=== PATIENT | male | born 1985 | race Caucasian/White ===

== ENCOUNTER 2017-05-09 18:24 | Observation (INO) | payer BC, SELFPAY ==
[~2017-05-09 18:24] MED LIST: Iopamidol 370 76% 100 ML VIAL ONE
[2017-05-09] MEDS ORDERED: Verapamil 5 MG/2 ML VIAL ONE (18:40)
[2017-05-09] MEDS ORDERED: Heparin 10,000 UNITS/1 ML VIAL ONE (18:40)
[2017-05-09] MEDS ORDERED: Nitroglycerin 100MG/250ML BOT 250 ML ONE (18:40)
--- NOTE | 2017-05-09 18:54 | CON ---
DATE OF CONSULTATION: 05/09/2017 CHIEF COMPLAINT: Chest pain and ST segment elevation. HISTORY OF PRESENT ILLNESS: Mr. Garza is a pleasant 31-year-old gentleman who states he began havin g pain yesterday. The pain was sharp, worse with deep inspiration and worse with lying down. The pa in then resolved and then recurred this morning. It was felt to be severe. He presented to the [facility] room and was found to have ST segment elevation noted diffusely. He was transferred via air me dical for possible acute NM. PAST MEDICAL HISTORY: None. SOCIAL HISTORY: Tobacco abuse. He is currently with 3 children. PAST SURGICAL HISTORY: Titanium plate to his left shoulder. MEDICATIONS: None. REVIEW OF SYSTEMS: Ten-point review of systems is reviewed and as above, otherwise negative. PHYSICAL EXAMINATION: GENERAL: Patient is a pleasant male who is in no acute distress. The patient appears his stated age . VITAL SIGNS: Blood pressure 110/70, pulse 60, respirations 20. NEUROLOGIC: The patient is alert and oriented times 3 with no focal neurologic deficits. HEENT: Sclerae without icterus. Mouth has moist mucous membranes with normal pallor. NECK: No JVD. Carotid upstroke brisk. No bruits bilaterally. LUNGS: Clear to auscultation with unlabored respirations. BACK: No scoliosis or kyphosis. CARDIAC: Regular rate and rhythm with normal S1 and S2. No S3 or S4 noted. No significant rubs, murmurs, thrills, or gallops noted throughout the precordium. PMI is not displaced. There is no parasternal heave. ABDOMEN: Soft, nontender, nondistended. No peritoneal signs present. No hepatosplenomegaly. No abnormal striae. EXTREMITIES: 2+ femoral and 2+ dorsalis pedis pulses. No cyanosis, clubbing, or edema. SKIN: No gross abnormalities. PERTINENT LABS: Pending. IMPRESSION: 1. ST segment elevation. RECOMMENDATIONS: Mr. Garza's only risk factors include tobacco abuse. He does have ST segment elev ation noted in lead 1 and 2 in addition to V3 through V6. This is likely suggestive of pericarditis, but cannot completely exclude NM. I discussed risks and benefits of proceeding with coronary angiog dominic with Mr. Garza. The risks included but are not limited to the following: , stroke, NM, need for emergency surgery, loss of limb, bleeding, and infection, as well as a reaction to the dye c ausing kidney failure and needing long-term dialysis. I also discussed the risks of PCI to include a ll of the above including coronary dissection and perforation in addition to acute stent thrombosis a nd restenosis. All questions about the procedure were answered. Given the above, the patient agreed to proceed with coronary angiography and possible PCI. All questions were answered. Given the above, the patient agreed to proceed with above procedure. F bradley recommendations depending on the above.
[2017-05-09] MEDS ORDERED: traMADol HCl 50 MG TAB PO PRN (19:05)
[2017-05-09] MEDS ORDERED: Acetaminophen/Codeine 30-300mg Tablet PO PRN ×2 (19:05)
[2017-05-09] MEDS ORDERED: Nitroglycerin 0.4 MG TAB (25 Tab Bottle) SL PRN (19:05)
[2017-05-09] MEDS ORDERED: Sodium Chloride 0.9% 1,000 ML IV SCH (19:15)
[2017-05-09] MEDS ORDERED: Sodium Chloride 0.9% 200 ML IV SCH (19:15)
[2017-05-09] MEDS ORDERED: Ondansetron HCl/PF 4 MG/2 ML Vial IVP PRN (20:39)
[2017-05-09] MEDS ORDERED: Acetaminophen 325 MG TAB PO PRN (20:39)
[2017-05-09] MEDS: Ibuprofen 800 MG TAB PO SCH ×3 (20:55→21:15)
[2017-05-09] MEDS: Colchicine 0.6 MG TAB PO SCH (21:17)
--- NOTE | 2017-05-09 21:27 | HP ---
PRIMARY CARE PHYSICIAN: None. CHIEF COMPLAINT: Chest pain. HISTORY OF PRESENT ILLNESS: Mr. Garza is a pleasant 31-year-old gentleman who was seen at [facility] following transfer from Emergency Room at [place]. He reports that he had retrosternal chest discomfort over the last 3 days. He describes it as a sens ation of dull ache, 9/10 at its worst, radiating to his back, worse with lying down, improved with si tting up or leaning forward. He had it intermittently over the last couple of days. However, he had it for an extended duration today. He reports that it was accompanied by shortness of breath. He d enies any fevers or chills. He denies any recent flu-like symptoms. He went to the Emergency Room at [place]. There, an electrocardiogram was done, which showed ST se gment elevations in the inferior lateral leads. He was transferred by helicopter to this hospital fo r further management. Mr. Garza reports that his pain is currently 5/10. He already had a coronary angiography today. I spoke to the insulation board head saw operator, who told me that the coron annmarie are normal. He is diagnosed with pericarditis. REVIEW OF SYSTEMS: The following complete review of systems was negative, unless otherwise mentioned in the HPI or below: Constitutional: Weight loss or gain, ability to conduct usual activities. Skin: Rash, itching. Eyes: Double vision, pain. ENT/Mouth: Nose bleeding, neck stiffness, pain, tenderness. Cardiovascular: Palpitations, dyspnea on exertion, orthopnea. Respiratory: Shortness of breath, wheezing, cough, hemoptysis, fever or night sweats. Gastrointestinal: Poor appetite, abdominal pain, heartburn, nausea, vomiting, constipation, or diarr hea. Genitourinary: Urgency, frequency, dysuria, nocturia. Musculoskeletal: Pain, swelling. Neurologic/Psychiatric: Anxiety, depression. Allergy/Immunologic: Skin rash, bleeding tendency. PAST MEDICAL HISTORY: None. PAST SURGICAL HISTORY: Titanium plate to his left shoulder. SOCIAL HISTORY: Smokes half to 1 pack of cigarettes a day, drinks a few beers every day. He denies recreational drug use. ALLERGIES: None. CURRENT MEDICATIONS: None. FAMILY HISTORY: No family history of premature coronary artery disease. PHYSICAL EXAMINATION: GENERAL: On examination, Mr. Garza is awake and alert, not in acute distress. VITAL SIGNS: Blood pressure is 122/81, pulse is 103. He is breathing at rate of 18, and saturating 99% on room air. He is afebrile. EYES: No scleral icterus. No conjunctival pallor. ENT: Moist mucosal membranes, no oropharyngeal erythema or exudates. NECK: Supple, nontender, normal range of movement, trachea is midline. RESPIRATORY: Accessory muscles of breathing are not active. Chest wall movements are symmetric bila terally. Lungs are clear to auscultation without wheeze, rhonchi or crepitations. CARDIOVASCULAR: S1 and S2 are heard, tachycardic and regular. Peripheral pulses are palpable. No c arotid bruit, no pericardial rub. ABDOMEN: Soft, nontender, bowel sounds heard, no hepatomegaly, no splenomegaly. SKIN: No rashes or subcutaneous nodules. LYMPHATIC: No cervical lymphadenopathy. NEUROLOGIC: Cranial nerves II-XII are intact. Deep tendon reflexes are 2+. MUSCULOSKELETAL: Power is 5/5 in all 4 extremities. PSYCHIATRIC: Normal mood, normal affect, patient is oriented to person, place, and time. LABORATORY DATA AND IMAGING: Mr. Garza's labs and investigations were reviewed. I reviewed his [place] ctrocardiogram, which shows ST segment elevations in the inferior lateral leads. I also reviewed his chest x-ray, which does not show any pulmonary infiltrates. Laboratory investigations show normal e lectrolytes, normal creatinine, unremarkable liver profile, elevated white count of 19,000, elevated hemoglobin of 17.8 and a normal D-dimer. ASSESSMENT AND PLAN: Mr. Garza is a pleasant 31-year-old gentleman who was seen at [facility] on 05/09/2017. His problem list includes: 1. Chest pain: Secondary to acute pericarditis. Mr. Garza will be admitted to the hospital for ob servation overnight. 2. Acute pericarditis: He has been started on ibuprofen, colchicine and PPI. We will continue the same. 3. Tobacco abuse: The patient has been counseled regarding tobacco cessation. He does not wish to start nicotine replacement therapy at this time. 4. Daily alcohol use: The patient has been counseled regarding moderation of alcohol use. LEVEL OF RISK: High. LEVEL OF COMPLEXITY: High.
[2017-05-09] MEDS ORDERED: Melatonin 3 MG TAB PO SCH (21:30)
[2017-05-09 22:58] VITALS: BMI 25.7
[2017-05-10] MEDS: Ibuprofen 800 MG TAB PO SCH ×2 (02:54→08:33)
[2017-05-10 04:06] LABS: #Eosinphils 0.1 thou/uL (0.0-0.7); #Lymphocytes 1.8 thou/uL (1.20-3.40); #Monocytes 1.8 thou/uL (0.11-0.59); #Neutrophils 13.2 thou/uL (1.40-6.50); %Basophils 0.2 % (0.0-1.0); %Eosinophils 0.6 % (0.0-10.0); %Lymphocytes 10.8 % (21.0-51.0); %Monocytes 10.4 % (0.0-10.0); Hemoglobin 15.7 g/dL (14.0-18.0); Mean Corpuscular HGB CONC 33.4 g/dL (32.0-36.0); Mean Corpuscular Volume 98.8 fl (80.0-94.0); Mean Platelet Volume 9.9 fL (7.4-10.4); Platelet Count 165 thou/uL (130-400); RBC Distribution Width 12.1 % (11.5-14.5); Red Blood Cell (RBC) Count 4.77 mill/uL (4.70-6.10); White Blood Cell (WBC) Count 16.9 thou/uL (4.8-10.8)
[2017-05-10 04:24] LABS: Anion Gap 14 mmol/L (10-20); BUN (Urea Nitrogen) 12 mg/dL (8.9-20.6); Calc. Creatinine Clearance 136 mL/min (70-130); Calcium 8.9 mg/dL (7.8-10.44); Carbon Dioxide 21 mmol/L (22-29); Chloride 104 mmol/L (98-107); Estimated GFR-MDRD Greater than 90; Glucose 117 mg/dL (70-105); Potassium 4.5 mmol/L (3.5-5.1); Sodium 134 mmol/L (136-145)
[2017-05-10] MEDS: Colchicine 0.6 MG TAB PO SCH (08:33)
[2017-05-10 11:41] VITALS: BP 147/98; TEMP 98.6
--- NOTE | 2017-05-10 12:45 | PDOC.PN ---
- Subjective Encounter Start Date: 05/10/17 Encounter Start Time: 12:44 Patient seen at bedside. No overnight events, states his chest pain has resolved. No wrist discomfort. - Objective MAR Reviewed: Yes Vital Signs & Weight: Vital Signs (12 hours) Temp Pulse Resp BP BP BP Pulse Ox 05/10/17 11:16 98.6 F 94 18 147/98 H 97 05/10/17 08:00 98.1 F 97 16 05/10/17 07:37 98.1 F 97 16 123/84 96 05/10/17 04:00 99.3 F 101 H 20 127/74 94 L Weight Weight 173 lb 12.8 oz I&O: 05/09/17 05/10/17 05/11/17 06:59 06:59 06:59 Intake Total 1885 460 Balance 1885 460 Result Diagrams: 05/10/17 03:45 05/10/17 03:45 Phys Exam - Physical Examination Constitutional: NAD HEENT: moist MMs Neck: no JVD Respiratory: clear to auscultation bilateral Cardiovascular: RRR Gastrointestinal: soft, non-tender Musculoskeletal: pulses present Neurological: moves all 4 limbs Psychiatric: A&O x 3 Dx/Plan (1) Chest pain Code(s): R07.9 - CHEST PAIN, UNSPECIFIED Status: Resolved (2) Pericarditis Code(s): I31.9 - DISEASE OF PERICARDIUM, UNSPECIFIED Status: Suspected - Plan cont current plan of care * Continue with Colchicine and Ibuprofen. * Smoking cessation advised * D/C Home
--- NOTE | 2017-05-10 13:25 | PRG ---
DATE OF SERVICE: 05/10/2017 SUBJECTIVE: Mr. Garza is doing well. No recurrent episodes of chest pain pressures. He is doing w ell on ibuprofen and colchicine. PHYSICAL EXAMINATION: VITAL SIGNS: Blood pressure 147/98, pulse 94, temperature 98.6. LUNGS: Clear to auscultation. HEART: Regular rate and rhythm. ABDOMEN: Soft, nontender, nondistended. EXTREMITIES: No edema. IMPRESSION: Pericarditis. RECOMMENDATIONS: 1. Nonsteroidal use and colchicine. 2. Recommend PPI for GI irritation. 3. Stop tobacco use. FOLLOWUP: Follow up with Serena Hurtado in 3-4 weeks.
--- NOTE | 2017-05-10 16:45 | DIS ---
DATE OF ADMISSION: 05/09/2017 DATE OF DISCHARGE: 05/10/2017 DISCHARGE DISPOSITION: Home. DISCHARGE FOLLOWUP: 1. With his PCP as an outpatient. 2. With Serena Hurtado in 3-4 weeks. DISCHARGE DIAGNOSES: 1. Chest pain secondary to pericarditis; negative cardiac catheterization. 2. Tobacco abuse. DISCHARGE MEDICATIONS: 1. Colchicine 0.6 mg p.o. b.i.d., he requires for at least 3 months. 2. Motrin 800 mg p.o. q.6 h. for 10 days and then tapering as per patient's pain. 3. Protonix 40 mg p.o. daily. INPATIENT CONSULTS: Dr. Britt, Cardiology. INPATIENT PROCEDURES: Cardiac catheterization, which revealed normal coronary arteries. BRIEF HOSPITAL COURSE: Mr. Evan Garaz is a 31-year-old male with a past medical history of tobacco abuse who presents to the emergency room initially to [place] where he was complaining of chest di [place]. EKG there showed diffuse ST elevations, particularly in the lateral leads as well as V1 an d V2. There was a suspicion for pericarditis; however, given his presentation, an WA cannot be exclu ded. He was seen by Cardiology who took the patient emergently to the cardiac catheterization lab. The cardiac catheterization revealed normal coronaries. He was then thereafter placed on colchicine and ibuprofen and it was thought that the patient's presentation is likely due to pericarditis. Afte r the initiation of colchicine and ibuprofen, his chest pain resolved. He is doing much better. He is no longer having any chest discomfort, shortness of breath or dyspnea. He is clinically appropria te for discharge home. He has been given the appropriate medications as well as told to follow up jaz Hurtado in 3-4 weeks. He understands these instructions. Tobacco cessation has been advise d. He will be discharged home later today in stable condition. DISCHARGE DIET: Heart healthy. Activity as tolerated, restrictions as per post-radial catheterizati on instructions. ALLERGIES: No known drug allergies. CODE STATUS: FULL CODE. I explained all this to the patient at bedside. He is agreeable to the plan of discharge. All quest ions have been answered. The patient's total discharge time 32 minutes.
[2017-05-10] MEDS ORDERED: Melatonin 3 MG TAB PO SCH (21:00)
--- NOTE | 2017-06-07 18:58 | EKG ---
Test Reason : Blood Pressure : / mmHG Vent. Rate : 101 BPM Atrial Rate : 101 BPM P-R Int : 134 ms QRS Dur : 088 ms QT Int : 314 ms P-R-T Axes : 040 061 024 degrees QTc Int : 407 ms Sinus tachycardia Early repolarization Otherwise normal ECG Confirmed by GILLES CULVER, TILA Chang ([id number]), managing editor AYE SCALES ([id number]) on 06/07/2017 6:58:19 PM Referred By: Confirmed By:TILA CAMPOVERDE MD
== END 2017-05-10 13:19 | disposition home or self-care (01) ==
LOC: ERS 18:24 → 2SW 18:28 → ERS 18:28 → 2SW 19:43
PROVIDERS: ADMIT Internal Medicine Cardiovascular Disease; ATTEND Internal Medicine Cardiovascular Disease
PROC: 4A023N7 Measurement of Cardiac Sampling and Pressure, Left Heart, Percutaneous Approach (ICD-10-PCS; principal; 2017-05-09)
PROC: B2111ZZ Fluoroscopy of Multiple Coronary Arteries using Low Osmolar Contrast (ICD-10-PCS; 2017-05-09)
DX: I31.9 Disease of pericardium, unspecified (principal); F17.200 Nicotine dependence, unspecified, uncomplicated; Z98.890 Other specified postprocedural states
CPT/HCPCS: 36415; 80048; 85025; 93005; 93458; 96360; 96361; A4216; C1769; G0378; J1644